=== PATIENT | male | born 1965 | race African-American/Black ===

== ENCOUNTER 2022-07-30 05:39 | Emergency (ER) | payer MEDICAID ==
[~2022-07-30] VITALS: Ht 177.8 cm; Wt 115.0 kg
[2022-07-30 05:56] VITALS: BP 144/78
[2022-07-30 07:12] LABS: CLARITY URINE CLEAR (CLEAR); COLOR URINE YELLOW (YELLOW); KETONES URINE NEGATIVE (NEGATIVE); LEUKOCYTE ESTERASE URINE 1+ (NEGATIVE); NITRITE URINE NEGATIVE (NEGATIVE); OCCULT BLOOD URINE NEGATIVE (NEGATIVE); PH URINE 5.5 (4.5-8.0); PROTEIN URINE TRACE (NEGATIVE); SPECIFIC GRAVITY URINE 1.024 (1.005-1.030); UROBILINOGEN URINE 0.2 E.U./dL (0.2-1.0)
[2022-07-30] MEDS ORDERED: LIDOCAINE HCL 1% 20ML VIAL (Pyxis) INJ INFIL ONE (07:45)
[2022-07-30] MEDS ORDERED: CEFTRIAXONE SODIUM 1 G/VIAL IM ONE (07:45)
[2022-07-30] MEDS ORDERED: LIDOCAINE HCL/PF 1% 10 MG/ML 5ML VIAL INFIL NR (08:00)
[2022-07-30] MEDS ORDERED: DOXY100C5 MT (08:55)
[2022-08-03 04:06] LABS: NEISSERIA GONORRHOEAE NAA Negative (Negative)
== END 2022-07-30 09:16 | disposition home or self-care (01) ==
LOC: ER 05:39
DX: N39.0 Urinary tract infection, site not specified (principal); E11.9 Type 2 diabetes mellitus without complications; I10 Essential (primary) hypertension; Z98.890 Other specified postprocedural states
CPT/HCPCS: 81003; 87086; 87491; 87591; 96372; 99283; J0696; J3490

== ENCOUNTER 2022-09-24 11:22 | Emergency (ER) | payer MEDICAID, OTHER ==
[~2022-09-24] VITALS: Ht 177.8 cm; Wt 113.0 kg
[~2022-09-24 11:22] MED LIST: DOXY100C5 MT
[2022-09-24 11:37] VITALS: BP 145/88
[2022-09-24 15:12] LABS: CLARITY URINE CLEAR (CLEAR); COLOR URINE YELLOW (YELLOW); KETONES URINE TRACE (NEGATIVE); LEUKOCYTE ESTERASE URINE NEGATIVE (NEGATIVE); NITRITE URINE NEGATIVE (NEGATIVE); OCCULT BLOOD URINE NEGATIVE (NEGATIVE); PROTEIN URINE NEGATIVE (NEGATIVE); SPECIFIC GRAVITY URINE 1.026 (1.005-1.030); UROBILINOGEN URINE 0.2 E.U./dL (0.2-1.0)
[2022-09-24] MEDS ORDERED: CIPR-263 MT (18:04)
== END 2022-09-24 18:22 | disposition home or self-care (01) ==
LOC: ER 11:22
DX: N50.812 Left testicular pain (principal); I11.0 Hypertensive heart disease with heart failure; I50.9 Heart failure, unspecified; E11.9 Type 2 diabetes mellitus without complications; Z95.0 Presence of cardiac pacemaker
CPT/HCPCS: 76870; 81003; 87591; 93976; 99284